=== PATIENT | female | born 1960 | race Caucasian/White ===

== ENCOUNTER 2019-06-26 00:25 | Emergency (ER) | payer OTHER ==
[~2019-06-26] VITALS: Ht 160 cm; Wt 63.5 kg
[2019-06-26] MEDS ORDERED: fentaNYL CITRATE 5 ML ONE (02:59)
[2019-06-26] MEDS ORDERED: KETOROLAC TROMETH 30 MG/ML 1ML VIAL ONE (02:59)
[2019-06-26] MEDS ORDERED: KETOROLAC TROMETH 30 MG/ML 1ML VIAL IV ONE ×2 (03:15→08:45)
[2019-06-26] MEDS ORDERED: fentaNYL CITRATE 100 MCG/2 ML VL IV ONE (03:15)
[2019-06-26] MEDS ORDERED: HYDROmorphone HCL 2 MG/ML VL IV ONE ×2 (03:45→05:15)
[2019-06-26] MEDS ORDERED: ONDANSETRON HCL 4 MG/2 ML VIAL IV ONE ×3 (03:45→08:45)
[2019-06-26 08:39] LABS: Basophils # (auto) 0 uL; Eosinophils # (auto) 0 uL; Eosinophils % (auto) 0.1 % (0.0-7.0); Hemoglobin 12.3 g/dL (12.2-16.2); Monocytes # (auto) 0.7 uL; Nucleated Red Blood Cells % 0.1 %
[2019-06-26 08:42] LABS: Basophils % (auto) 0.5 % (0.0-2.0); Hematocrit 35.4 % (36.0-46.0); Lymphocytes # (auto) 0.8 uL; Lymphocytes % (auto) 13.5 % (10.0-50.0); Mean Corpuscular Hemoglobin 37.1 pg (28.0-32.0); Mean Corpuscular Hgb Conc. 34.8 g/dL (32.0-36.0); Mean Corpuscular Volume 106.8 fL (80.0-100.0); Monocytes % (auto) 11.9 % (0.0-12.0); Neutrophils # (auto) 4.6 uL; Platelet Count (auto) 170 10^3/uL (140-450); Red Blood Cells 3.31 10^6/uL (4.0-5.20); Red Cell Distribution Width 13.6 % (11.8-14.3); White Blood Cell 6.2 10^3/uL (4.4-10.8)
[2019-06-26 08:55] LABS: Albumin 3.5 g/dL (3.4-5.0); Anion Gap 9 (5-15); BUN/Creatinine Ratio 11.9; Blood Urea Nitrogen 10 mg/dL (7-18); Calcium 8.2 mg/dL (8.5-10.1); Carbon Dioxide 24 mmol/L (21-32); Chloride 106 mmol/L (98-107); GFR African American 90 mL/min; GFR Non-African American 74 mL/min; Glucose 106 mg/dL (74-106); Potassium 4.4 mmol/L (3.5-5.1); Sodium 139 mmol/L (136-145)
[2019-06-26 09:00] VITALS: BP 117/62
[2019-06-26 09:03] LABS: INR 1.01 (0.9-1.15); Partial Thromboplastin Time 24.2 sec (23.64-32.05)
[2019-06-26 09:07] LABS: Alanine Aminotransferase 22 U/L (13-56); Alkaline Phosphatase 58 U/L (45-117); Aspartate Aminotransferase 20 U/L (15-37); Bilirubin, Total 0.9 mg/dL (0.2-1.0); Total Protein 6.4 g/dL (6.4-8.2)
== END 2019-06-26 09:24 | disposition short-term general hospital (02) ==
LOC: EDBD 00:25 → ER 00:30
DX: S72.401A Unspecified fracture of lower end of right femur, initial encounter for closed fracture (principal); Z90.710 Acquired absence of both cervix and uterus; Z88.6 Allergy status to analgesic agent; W19.XXXA Unspecified fall, initial encounter; Y93.89 Activity, other specified; Y99.8 Other external cause status; Y92.89 Other specified places as the place of occurrence of the external cause
CPT/HCPCS: 36415; 71045; 73560; 80053; 84484; 85025; 85610; 85730; 93005; 96374; 96375; 96376; 99285; J1170; J1885; J2405; J3010